=== PATIENT | female | born 1950 | race Caucasian/White ===

== ENCOUNTER 2023-09-10 10:10 | Emergency (ER) | payer OTHER, MEDICARE ==
[2023-09-10 10:19] VITALS: BP 129/61; PULSE 58; RESP 18; TEMP 97.1; BMI 20.7
[2023-09-10] MEDS ORDERED: ACETAMINOPHEN 500 MG TABLET (FP) ONE (11:22)
[2023-09-10] MEDS: ACETAMINOPHEN 500 MG TABLET (FP) PO ONE (11:24)
== END 2023-09-10 13:29 | disposition home or self-care (01) ==
LOC: JERFT 10:10
DX: S42.002A Fracture of unspecified part of left clavicle, initial encounter for closed fracture (principal); M25.512 Pain in left shoulder; M79.622 Pain in left upper arm; R07.81 Pleurodynia; W01.0XXA Fall on same level from slipping, tripping and stumbling without subsequent striking against object, initial encounter; Y92.000 Kitchen of unspecified non-institutional (private) residence as the place of occurrence of the external cause
CPT/HCPCS: 71250-TC; 73030-TC-LT-FY; 73060-TC-LT-FY; 93005; 93010; 99285-25

== ENCOUNTER 2023-12-18 11:21 | Inpatient (IN) | payer OTHER, MEDICARE ==
[2023-12-18 11:27] VITALS: BMI 21.2
[2023-12-18 13:43] LABS: EOS % 5.4 % (0-4.5); HEMATOCRIT 34.5 % (32.4-45.2); HEMOGLOBIN 11.8 GM/dL (10.7-15.3); LYMPH % 17.7 % (8-40); MCH 33.5 pg (25.7-33.7); MEAN CELL VOLUME 98.4 fl (80-96); MEAN PLT VOLUME 7.6 fl (7.5-11.1); MONO % 6.6 % (3.8-10.2); NEUT % 69.3 % (42.8-82.8); PLATELET COUNT 534 10^3/uL (134-434); RBC 3.51 M/mm3 (3.60-5.2); RDW 14.2 % (11.6-15.6)
[2023-12-18 13:58] LABS: POTASSIUM 4.3 mmol/L (3.5-5.1)
[2023-12-18 14:00] LABS: ALBUMIN 3.7 g/dl (3.4-5.0); CALCIUM 9.6 mg/dL (8.5-10.1); MAGNESIUM 1.8 mg/dL (1.8-2.4)
[2023-12-18 14:03] LABS: CREATININE 1.1 mg/dL (0.55-1.3)
[2023-12-18 14:04] LABS: PHOSPHOROUS 4.4 mg/dL (2.5-4.9)
[2023-12-18 14:05] LABS: BILIRUBIN,TOTAL 0.7 mg/dL (0.2-1); TOT PROT 6.6 g/dl (6.4-8.2)
[2023-12-18] MEDS ORDERED: ACETAMINOPHEN INJECTION 100 ML ONE ×2 (14:18→18:31)
[2023-12-18] MEDS: ACETAMINOPHEN 1000 MG/100 ML BAG IVPB ONE (14:27)
[2023-12-18] MEDS ORDERED: GABAPENTIN 300 MG CAPSULE ONE (14:39)
[2023-12-18] MEDS ORDERED: LIDOCAINE 5% TOPICAL PATCH ONE (14:40)
[2023-12-18] MEDS: LIDOCAINE 5% TOPICAL PATCH TP ONE (14:47)
[2023-12-18] MEDS: GABAPENTIN 300 MG CAPSULE PO ONE (14:48)
[2023-12-18 14:55] LABS: HIV INTERPRETATION NEGATIVE (NEGATIVE)
[2023-12-18] MEDS ORDERED: ACETAMINOPHEN 1000 MG/100 ML BAG IVPB PRN (15:42)
[2023-12-18] MEDS ORDERED: KETOROLAC TROMETHAMINE 15 MG/ML VIAL ONE (18:31)
[2023-12-18] MEDS: ACETAMINOPHEN 1000 MG/100 ML BAG IVPB SCH (19:09)
[2023-12-18] MEDS: KETOROLAC TROMETHAMINE 15 MG/ML VIAL IVPUSH SCH (19:10)
[2023-12-18] MEDS: CYCLOBENZAPRINE HCL 5 MG TABLET PO SCH (21:56)
[2023-12-18] MEDS: ATORVASTATIN CA 20 MG TABLET (FP) PO SCH (21:56)
[2023-12-19] MEDS: LIDOCAINE PATCH REMOVAL MC ONE (00:29)
[2023-12-19] MEDS ORDERED: PATIENT'S OWN MEDICATION (NON-FORMULARY) (Losartan/Hydrochlorothiazide [Losartan-Hctz 100- PO SCH (10:00)
[2023-12-19] MEDS: LOSARTAN POTASSIUM 50 MG TABLET PO SCH (10:20)
[2023-12-19] MEDS: amLODIPine BESYLATE 10 MG TABLET (FP) PO SCH (10:20)
[2023-12-19] MEDS: HYDROCHLOROTHIAZIDE 12.5 MG CAPSULE (FP) PO SCH (10:20)
[2023-12-19] MEDS: PREGABALIN 25 MG CAPSULE PO SCH (10:20)
[2023-12-19] MEDS: LIDOCAINE 4% PATCH TP SCH (10:21)
[2023-12-19] MEDS: LIDOCAINE PATCH REMOVAL MC SCH (21:10)
[2023-12-20] MEDS: ENOXAPARIN NA (PORCINE) 40 MG/0.4 ML DISP.SYRIN SQ SCH (10:00)
[2023-12-20] MEDS: FAMOTIDINE 20 MG TABLET PO SCH (10:00)
[2023-12-20] MEDS: DEXAMETHASONE SOD PHOSPHATE 10 MG/1 ML VIAL IVPUSH ONE (10:00)
[2023-12-20] MEDS: SENNOSIDES/DOCUSATE COMBO (SENNA PLUS) TABLET (UD) PO SCH (12:56)
[2023-12-20] MEDS: POLYETHYLENE GLYCOL (HEALTHYLAX) 3350 17 GM PACKET PO SCH (12:57)
[2023-12-20] MEDS: BACLOFEN 10 MG TABLET (FP) PO SCH (13:31)
[2023-12-20] MEDS ORDERED: PREGABALIN 25 MG CAPSULE PO SCH (14:00)
[2023-12-20] MEDS: DEXAMETHASONE SOD PHOSPHATE 10 MG/1 ML VIAL IVPUSH SCH (17:15)
[2023-12-21 08:18] LABS: BASO % 0.4 % (0-2.0); HEMATOCRIT 34.1 % (32.4-45.2); HEMOGLOBIN 11.5 GM/dL (10.7-15.3); LYMPH % 6.7 % (8-40); MCH 32.2 pg (25.7-33.7); MCHC 33.7 g/dl (32.0-36.0); MEAN CELL VOLUME 95.5 fl (80-96); MEAN PLT VOLUME 7.8 fl (7.5-11.1); MONO % 3.7 % (3.8-10.2); NEUT % 89.2 % (42.8-82.8); PLATELET COUNT 554 10^3/uL (134-434); RBC 3.57 M/mm3 (3.60-5.2); RDW 13.8 % (11.6-15.6); WHITE BLOOD COUNT 12.8 K/mm3 (4.0-10.0)
[2023-12-21 08:32] LABS: POTASSIUM 3.7 mmol/L (3.5-5.1)
[2023-12-21 08:34] LABS: CALCIUM 9.9 mg/dL (8.5-10.1)
[2023-12-21 08:35] LABS: BLOOD UREA NITROGEN 24.8 mg/dL (7-18)
[2023-12-21] MEDS: MAGNESIUM CITRATE 300 ML BOTTLE PO ONE (10:40)
[2023-12-21] MEDS: PREGABALIN 25 MG CAPSULE PO SCH (13:33)
[2023-12-21] MEDS: oxyCODONE HCL 5 MG TABLET PO PRN (21:23)
[2023-12-22] MEDS ORDERED: oxyCODONE HCL 5 MG TABLET PO PRN (11:42)
[2023-12-22 13:16] LABS: HEMATOCRIT 36.3 % (32.4-45.2); HEMOGLOBIN 11.9 GM/dL (10.7-15.3); MCH 32.3 pg (25.7-33.7); MEAN PLT VOLUME 7.9 fl (7.5-11.1); PLATELET COUNT 581 10^3/uL (134-434); RDW 14.1 % (11.6-15.6); WHITE BLOOD COUNT 18.8 K/mm3 (4.0-10.0)
[2023-12-22 13:41] LABS: ANISOCYTOSIS 0; MACROCYTOSIS 0
[2023-12-22 14:05] LABS: POTASSIUM 3.8 mmol/L (3.5-5.1)
[2023-12-22 14:07] LABS: CALCIUM 10.1 mg/dL (8.5-10.1)
[2023-12-22 14:08] LABS: BLOOD UREA NITROGEN 29.1 mg/dL (7-18)
[2023-12-22] MEDS: DEXAMETHASONE SOD PHOSPHATE 4 MG/1 ML VIAL IVPUSH SCH (18:58)
[2023-12-23 07:22] VITALS: TEMP 97.9
[2023-12-23] MEDS: MAGNESIUM HYDROX 2400MG/30ML ORAL SUSPENSION 30 ML CUP PO ONE (08:12)
[2023-12-23 09:50] VITALS: BP 105/57; PULSE 78; RESP 17
== END 2023-12-23 12:46 | disposition home or self-care (01) | DRG 552 ==
LOC: JER 11:21 → JERBED 15:39 → J7W 20:44 → OBSVTOIN 12-20 14:42
PROVIDERS: ADMIT Internal Medicine; ATTEND Nurse Practitioner Family
DX: M51.16 Intervertebral disc disorders with radiculopathy, lumbar region (principal); M48.061 Spinal stenosis, lumbar region without neurogenic claudication; M41.84 Other forms of scoliosis, thoracic region; I10 Essential (primary) hypertension; E78.5 Hyperlipidemia, unspecified; K59.00 Constipation, unspecified; Z85.118 Personal history of other malignant neoplasm of bronchus and lung; Z96.641 Presence of right artificial hip joint
CPT/HCPCS: 36415; 72128-TC; 72131-TC; 72148-TC; 72192-TC; 80048; 80053; 83036; 83735; 84100; 85025; 85651; 86140; 86803; 87389; 93971-TC; 97116-GP; 97161-GP; 99285-25; G0378; J0131; J0475; J1100

== ENCOUNTER 2024-02-19 04:09 | Day surgery (SDC) | payer OTHER, MEDICARE ==
[2024-02-18 14:12] VITALS: BMI 21.2
[2024-02-19] MEDS ORDERED: ACETAMINOPHEN 500 MG TABLET (FP) PO PRN (08:59)
[2024-02-19] MEDS: GUM MASTIC/STORAX/MSAL/ALCOHOL 1 DRP DROPSBTL MC ONE (10:42)
[2024-02-19 11:02] VITALS: TEMP 100
[2024-02-19 11:52] VITALS: BP 131/72; PULSE 72; RESP 15
== END 2024-02-19 11:56 | disposition home or self-care (01) ==
LOC: JASU-SURG 04:09
PROVIDERS: ATTEND Pain Medicine Pain Medicine
PROC: 01HY3MZ Insertion of Neurostimulator Lead into Peripheral Nerve, Percutaneous Approach (ICD-10-PCS; principal; 2024-02-19 10:30)
DX: G89.4 Chronic pain syndrome (principal); M54.32 Sciatica, left side
CPT/HCPCS: 64555; C1778